=== PATIENT | male | born 1975 | race Two or more races ===

== ENCOUNTER 2024-04-08 10:30 | Day surgery (SDC) | payer MEDICAID, SELFPAY ==
[2024-04-07 07:45] VITALS: BMI 30.7
[2024-04-07 09:14] LABS: Basophils # (Auto) 0.1 Thou/mm3 (0.0-0.2); Basophils % (Auto) 1 % (0-2.5); Eosinophils # (Auto) 0.1 Thou/mm3 (0.0-0.5); Eosinophils % (Auto) 1 % (0-10); Hematocrit 42.5 % (41.0-53.0); Hemoglobin 14.1 g/dL (13.5-16.0); Immature Granulocytes % (Auto) 0 % (0-0); Immature Granulocytes Auto 0.03 Thou/mm3 (0.00-0.00); Lymphocytes # (Auto) 1.3 Thou/mm3 (1.0-4.8); Lymphocytes % (Auto) 15 % (10-50); Mean Corpuscular HGB Conc 33.2 g/dl (31.0-37.0); Mean Corpuscular Hemoglobin 32.9 pg (25.0-35.0); Mean Corpuscular Volume 99 fL (80-100); Monocytes # (Auto) 0.8 Thou/mm3 (0.0-0.8); Monocytes % (Auto) 10 % (0-12); Neutrophils # (Auto) 6.3 Thou/mm3 (1.8-7.7); Neutrophils % (Auto) 73 % (37-80); Nucleated Red Blood Cell % 0 /100 WBC (0); Platelet Count 336 Thou/mm3 (140-440); RDW Standard Deviation 46.3 fL (35.1-43.9); Red Blood Count 4.28 Miln/mm3 (4.50-5.90); White Blood Count 8.6 Thou/mm3 (3.8-10.6)
[2024-04-07 09:36] LABS: Alanine Aminotransferase 25 U/L (10-49); Albumin, Serum 4.7 gm/dL (3.5-5.0); Alkaline Phosphatase 76 U/L (46-116); Anion Gap 7 (7-16); Aspartate Amino Transferase 18 U/L (0-34); BUN/Creatinine Ratio 16 Ratio (12-20); Bilirubin,Total 0.5 mg/dL (0.3-1.2); Blood Urea Nitrogen 16 mg/dL (9-23); Calcium 10.1 mg/dL (8.3-10.6); Calcium (Corrected) 10.1 mg/dL (8.5-10.1); Carbon Dioxide 27.8 mMol/L (20.0-31.0); Chloride 104 mMol/L (98-107); Estimated Creatinine Clearance 102.4 mL/min (>60); Globulin 2.4 gm/dL (2.3-3.5); Glucose 95 mg/dL (74-106); Osmolality,Calculated 278 (275-295); Potassium 4.2 mMol/L (3.4-5.1); Sodium 139 mMol/L (136-145); Total Protein 7.1 gm/dL (5.7-8.2); eGFR > 60 See Note
--- NOTE | 2024-04-07 15:25 | SUR.PREOP ---
Pt notified to come in at 1030 tomorrow for surgery.
--- NOTE | 2024-04-07 15:25 | SUR.PREOP ---
Cardiac records reviewed with Dr Quinones.
[2024-04-08] VITALS (10 sets, daily range): BP systolic 98–123; BP diastolic 66–87; PULSE 80–96; RESP 13–20; TEMP 36.4–36.6; O2SAT 94–98
--- NOTE | 2024-04-08 13:34 | SUR.PHASEI ---
pt arrived to PACU via gurney drowsy but arouses to verbal commands, breathing unlabored, dressing to right inguinal region clean, dry, and intact, report from Sánchez SALTER and Dr Quinones
--- NOTE | 2024-04-08 13:41 | PD.SUROPNT ---
Date of Procedure 04/08/24 Pre Op Diagnosis Incarcerated right inguinal hernia Post Op Diagnosis Incarcerated direct right inguinal hernia Procedure Repair of incarcerated right inguinal hernia with mesh Findings Direct right inguinal hernia with incarcerated large piece of preperitoneal fat Procedure Description Patient brought into the operating room in supine position. After administration of general endotracheal anesthesia, patient's right groin was shaved, prepped and draped in standard surgical manner. The right inguinal crease was anesthetized with half percent Marcaine. An approximately 8 cm incision was made and dissection was carried to subcutaneous tissue. The Bridget's fascia was divided and the external oblique aponeurosis was opened towards the external ring. The hernia sac and the spermatic cord structures were from the posterior aspect of the external oblique aponeurosis at the level of pubic tubercle. The hernia sac was then meticulously dissected off the spermatic cord structures at the level of internal ring. Patient was noted to have direct right inguinal hernia with incarcerated large piece of preperitoneal fat. The sac was opened and the contents were reduced. The defect was closed with interrupted [id number]-[id number] sutures using 0 Vicryl. The floor of inguinal canal was then reconstructed with ultra Pro proceed mesh. The mesh was secured with running 2-0 Prolene suture. The mesh secured medially to the pubic tubercle, superiorly into the conjoin tendon, inferiorly and to the shelving edge of inguinal ligament, the mesh was placed around the cord structures and tacked under the external oblique aponeurosis laterally. The area was copiously and thoroughly washed and irrigated, all the fluids were suctioned and the suction fluid returned clear. Hemostasis was adequate and satisfactory. External oblique aponeurosis was closed with running 2-0 Vicryl suture, and Bridget's fascia was closed with interrupted suture using 3-0 Vicryl. The incision was closed with 4-0 Monocryl in subcutaneous fashion. Instruments, needles and sponge counts were reported to be correct ?2. Patient tolerated the procedure well. He was extubated, breathing spontaneously and without difficulty and was transferred to postanesthesia care in stable condition. Anesthesia GETA and local Pathology / specimen None Estimated Blood Loss 10 Condition Stable Disposition PACU Surgeon Sharmin Conklin MD Surgical Staff Operation Date: 04/08/24 12:30 Case Staff Anesthesiologist: Julio Quinones
--- NOTE | 2024-04-08 14:10 | SUR.PHASEII ---
Report to Mel RN
--- NOTE | 2024-04-08 14:31 | SUR.PHASEII ---
1410: Assumed care. Report from Dennis SALTER. Pt awake, alert. Sitting up and tolerating po fluids with no difficulty swallowing and no n/v. VS stable. Monitor shows alternating Afib and Aflutter. Rhythm not regular. Pt has hx of heart problems. Dressing to right groin dry, clean, intact with no swelling and no hematoma to area. No c/o pain.
--- NOTE | 2024-04-08 16:54 | SUR.PHASEII ---
1440: Pt has been resting with no complaints voiced. VS stable. Dressing dry, clean, intact. 1510: Pt fully awake, oriented x3. VS stable. Dressing unchanged. States he only has small amount of pain with movement. Abdominal binder placed. Pt and stated understanding of discharge instructions via senior controller Riccardo #[id number]. Pt also instructed to leaf size picker his prescription at [facility]. Pt discharged from Pacu in stable condition.
== END 2024-04-08 15:10 | disposition home or self-care (01) ==
PROVIDERS: Anesthesiology; PCP Family Medicine; Referring Provider Surgery; Visit Provider Surgery
PROC: (CPT 49507; principal; 2024-04-08 12:15)
DX: K40.30 Unilateral inguinal hernia, with obstruction, without gangrene, not specified as recurrent (principal)
CPT/HCPCS: 49507; 36415; 80053; 85025; A4217; A4649; C1781; J0690; J1100; J2250; J2704; J2765; J3010; J3490

== ENCOUNTER → 2025-03-17 | Outpatient (CLI) | payer MEDICAID, SELFPAY ==
--- NOTE | 2025-03-17 09:19 | XR_ITS ---
Examination: Wrist, left 3 views Technique: Wrist AP, oblique, lateral 3 views Date and time of exam: March 17, 2025, 0944 hours INDICATIONS: Palpable lump distal forearm 3 months. FINDINGS: Old ununited fracture ulnar styloid Mild to moderate narrowing radiocarpal joint No acute fracture No avascular necrosis No foreign body IMPRESSION: No acute fracture No avascular necrosis No foreign body
--- NOTE | 2025-03-17 09:19 | XR_ITS ---
Examination: Hand, left 3 views Technique: Hand AP, oblique, lateral 3 views Date and time of exam: March 17, 2025, 0944 hours INDICATIONS: Hand pain 3 months. FINDINGS: Old ununited fracture ulnar styloid Mild to moderate narrowing radiocarpal joint No acute fracture No erosive arthritic change No opaque foreign bodies IMPRESSION: No acute fractures No erosive arthritic change
--- NOTE | 2025-03-17 09:19 | XR_ITS ---
Examination: Left elbow 3 views Technique: Elbow AP, oblique, lateral 3 views Exam date and time: March 17, 2025, 0944 hours INDICATIONS: Lump on the forearm 3 months FINDINGS: No fracture or dislocation No elbow effusion Minimal spurring of the coronoid process of the ulna IMPRESSION: No fracture or foreign body.
--- NOTE | 2025-03-17 09:19 | XR_ITS ---
Examination: Forearm, left, 2 views. Technique: Forearm, AP, lateral 2 views Date and time of exam: March 17, 2025, 0944 hours INDICATIONS: Lump on the forearm 3 months FINDINGS: Adequate bone density. No acute fracture No bony exostosis No cortical bone destruction No opaque foreign body IMPRESSION: Consider ultrasound soft tissue of any palpable lump left forearm
== END | disposition home or self-care (01) ==
PROVIDERS: PCP Family Medicine
DX: M25.532 Pain in left wrist (principal); M79.642 Pain in left hand; M25.522 Pain in left elbow; R22.32 Localized swelling, mass and lump, left upper limb
CPT/HCPCS: 73080; 73090; 73110; 73130